=== PATIENT | male | born 1990 | race Caucasian/White ===

== ENCOUNTER 2020-08-07 16:32 | Emergency (ER) | payer OTHER ==
[2020-08-07 16:48] VITALS: BP 140/87; PULSE 70; TEMP 98.2; BMI 25.8
[2020-08-07 17:48] LABS: EPI CELLS 21 /uL (0-25.1); HYALINE CASTS 5 /uL (0-3.1); URINE APPEARANCE CLEAR; URINE BACTERIA 36 /uL (0-1359); URINE BILIRUBIN NEGATIVE (NEGATIVE); URINE COLOR YELLOW; URINE GLUCOSE (UA) NEGATIVE (NEGATIVE); URINE KETONE TRACE (NEGATIVE); URINE LEUK ESTERASE 1+ (NEGATIVE); URINE NITRITE NEGATIVE (NEGATIVE); URINE PROTEIN NEGATIVE (NEGATIVE); URINE RBC 124 /uL (0-23.9); URINE WBC 217 /uL (0-25.8)
== END 2020-08-07 17:45 | disposition home or self-care (01) ==
LOC: JERFT 16:32 → JER 16:32 → JERFT 17:45
DX: R30.0 Dysuria (principal); R36.9 Urethral discharge, unspecified
CPT/HCPCS: 36415; 81003; 87086; 87491; 87591; 99284-25